=== PATIENT | female | born 1965 | race Caucasian/White ===

== ENCOUNTER 2019-09-12 14:36 | Outpatient (CLI) | payer BC, SELFPAY ==
--- NOTE | 2019-09-12 14:44 | MM_ITS ---
WS: [id number] SCREENING DIGITAL MAMMOGRAM WITH CAD HISTORY: SCREENING COMPARISON: None available. Bilateral CC and MLO views submitted. Computer aided detection analyzed. Breast composition: There are scattered areas of fibroglandular density. There is mild asymmetry of t he upper outer quadrant of the LEFT breast, best seen on the CC projection laterally. LEFT breast: Spot compression views (CC and MLO). True ML. Ultrasound to follow if abnormality anjana liu. MM/[id number] IMPRESSION: BI-RADS: 0-Incomplete: Need additional imaging evaluation FOLLOW UP: Need Additional Imaging
== END 2019-09-12 14:37 | disposition home or self-care (01) ==
LOC: RADSHAW 14:42
PROVIDERS: PCP Electrodiagnostic Medicine; Visit Provider Electrodiagnostic Medicine
DX: Z12.31 Encounter for screening mammogram for malignant neoplasm of breast (principal); N64.89 Other specified disorders of breast
CPT/HCPCS: 77067

== ENCOUNTER 2019-10-11 09:19 | Outpatient (CLI) | payer BC, SELFPAY ==
--- NOTE | 2019-10-11 09:24 | US_ITS ---
WS: [id number] ADDITIONAL VIEWS LEFT MAMMOGRAM LEFT BREAST ULTRASOUND HISTORY: LT BREAST ASYMMETRY COMPARISON: 09/12/2019 LEFT MAMMOGRAM: Spot compression views and true ML. Asymmetry nearly completely resolves in the upper outer quadrant. There is still an area of etl architect ural distortion which could be related to prior surgery. Minimal asymmetry persists. LEFT BREAST ULTRASOUND 2-D and color Doppler imaging submitted. Ultrasound is directed to the upper outer quadrant. There is a well-circumscribed hypoechoic mass franco suring 6 x 5 x 6 mm. No increased vascularity. 2 cm from the nipple. There is an additional hypoechoi c nodule with hyperechoic margins at 12:00, 2 cm from the nipple. This nodule measures 3 x 3 x 2 mm. No increased vascularity. Slightly taller than wide. Ultrasound-guided biopsy recommended of the hypoechoic nodule at 12:00, 2 cm from the nipple. This no dule is not definitely seen by mammogram and only seen by ultrasound. Additional hypoechoic nodule at 2:00 is very benign in appearance. Recommend ultrasound follow-up in 6 months. US/US breast LT limited* [id number] IMPRESSION: BI-RADS: 4-Suspicious Finding-Biopsy Should Be Considered FOLLOW UP: Biopsy Recommended
== END 2019-10-11 09:20 | disposition home or self-care (01) ==
LOC: RADSHAW 09:22
PROVIDERS: PCP Electrodiagnostic Medicine; Visit Provider Electrodiagnostic Medicine
DX: N64.89 Other specified disorders of breast (principal); N63.21 Unspecified lump in the left breast, upper outer quadrant
CPT/HCPCS: 76642; 77065

== ENCOUNTER 2019-10-17 12:07 | Outpatient (CLI) | payer BC, SELFPAY ==
--- NOTE | 2019-10-17 12:16 | US_ITS ---
WS: [id number] ULTRASOUND-GUIDED LEFT BREAST BIOPSY CLINICAL INFORMATION: L BREAST MASS COMPARISON: None. FINDINGS: The procedure including risks, benefits, and complications were discussed with the patient who agreed to proceed. Using sterile technique patient was prepped and draped in the usual sterile fashion. Aft er 1% lidocaine utilizing real-time ultrasound guidance 5 14-gauge cores were obtained of the left br east lesion at the 12 o'clock position. Subsequently a titanium clip was placed in the biopsy cavity. No immediate complications. Pathology demonstrates Breast, left, mass, ultrasound guided biopsy: -Benign fibroadipose tissue with benign glandular tissue and stromal sclerosis. -No malignancy identified. US/[id number] IMPRESSION: 1. Uncomplicated ultrasound-guided left breast biopsy. 2. The pathology demonstrates benign breast tissue. No evidence of malignancy. 3. Additional hypoechoic nodule at the 2:00 position previously described will be followed up in 6 months with left diagnostic mammography and ultrasound. BI-RADS: 2-Benign FOLLOW UP: 6 Month Follow-up
== END 2019-10-17 12:08 | disposition home or self-care (01) ==
LOC: RAD 12:14
PROVIDERS: PCP Electrodiagnostic Medicine; Visit Provider Electrodiagnostic Medicine
DX: N63.20 Unspecified lump in the left breast, unspecified quadrant (principal)
CPT/HCPCS: 19083; 88305

== ENCOUNTER 2020-11-09 10:40 | Outpatient (CLI) | payer BC, SELFPAY ==
--- NOTE | 2020-11-09 10:46 | MM_ITS ---
WS: [id number] BILATERAL DIGITAL DIAGNOSTIC MAMMOGRAM MAMMOGRAPHY WITH CAD CLINICAL INFORMATION: F/U FROM BIOPSY COMPARISON: September 11 and October 11, 2019 TECHNIQUE: Bilateral CC, MLO, and ML views. FINDINGS: Scattered fibroglandular densities bilaterally. Biopsy marker LEFT breast near the 12:00 position. As ymmetry in this area is stable in appearance compared to previous. Stable ovoid nodular densities franco suring 9 to 10 mm upper outer LEFT breast are unchanged. The smaller lesion most likely represents an intramammary lymph node. Ultrasound is pending. Stable punctate and clustered calcifications upper outer LEFT breast. Recommend 6 month follow-up. So me of these appear to represent incidental layering milk of calcium. RIGHT breast is unremarkable and unchanged. Incidental intramammary lymph node inner right breast me asuring 5 mm. Incidental punctate and lucent centered calcifications. ULTRASOUND BREAST LEFT TECHNIQUE: Ultrasound left breast focused area of concern. CLINICAL INFORMATION: F/U FROM BIOPSY FINDINGS: Ultrasound left breast at the 2 to 3:00 position and 12 to 2:00 position. Multiple incidental subcent imeter cysts and ductal ectasia. LESION 1: Previously biopsied lesion near the 12:00 position is stable in appearance measuring 10 x 1 1 x 6 mm with associated biopsy marker. (Note this is identified at the 2:00 position today) LESION 2: Solid appearing hypoechoic lesion at the 3:00 position 4 cm from the nipple measuring appro ximately 7.0 x 6.4 x 6.3 mm previously measured 6.5 x 5.2 x 6.1 mm. This is slightly more prominent t olvin and recommend further evaluation with ultrasound-guided biopsy. LESION 3: Additional hypoechoic lesion at the 3:00 position 2 cm from the nipple was not previously i dentified and measures 9.2 x 8.6 x 5.5 mm. This is nonspecific in appearance and may represent a sma ll intramammary lymph node, however recommend ultrasound guided biopsy of this lesion as well. MM/[place] [id number] IMPRESSION: BI-RADS: 4-Suspicious Finding-Biopsy Should Be Considered FOLLOW UP: US Guided Biopsy Recommended 1. Recommend ultrasound-guided biopsy of the solid hypoechoic lesion at the 3: 00 position 4 cm from the nipple. This is 1 to 2 mm larger compared to previous . 2. Additional new small lesion visualized today at the 3:00 position 2 cm from the nipple. This can also be biopsied at that time. 3. Stable punctate clustered calcifications upper outer left breast. Recommend 6 month follow-up with left diagnostic mammography and spot magnification view s. 4. Previously biopsied lesion at the 12:00 position with adjacent biopsy marke r is stable in appearance.
== END 2020-11-09 10:41 | disposition home or self-care (01) ==
LOC: RADSHAW 10:43
PROVIDERS: PCP Electrodiagnostic Medicine; Visit Provider Electrodiagnostic Medicine
DX: R92.8 Other abnormal and inconclusive findings on diagnostic imaging of breast (principal); N63.25 Unspecified lump in the left breast, overlapping quadrants; R92.1 Mammographic calcification found on diagnostic imaging of breast
CPT/HCPCS: 76642; 77066

== ENCOUNTER 2020-11-29 09:58 | Outpatient (CLI) | payer BC, SELFPAY ==
--- NOTE | 2020-11-29 10:38 | US_ITS ---
WS: [id number] ULTRASOUND-GUIDED LEFT BREAST BIOPSY CLINICAL INFORMATION: LEFT BREAST MASS COMPARISON: None. FINDINGS: The procedure including risks, benefits, and complications were discussed with the patient who agreed to proceed. Using sterile technique patient was prepped and draped in the usual sterile fashion. Aft er 1% lidocaine utilizing real-time ultrasound guidance 5 14-gauge cores were obtained of the left br east lesion at the 3 o'clock position 4 cm from the nipple. Subsequently a titanium clip was placed i n the biopsy cavity. No immediate complications. The previously described potential lesion at the 3:00 position 2 cm from the nipple is not well seen today and may correspond to a prominent duct seen on today's exam. This was not biopsied. This can be further compared when the postbiopsy ultrasound and left diagnostic mammography are performed in [facility] Pathology demonstrates Left breast mass, needle core biopsies: 1. Fibrocystic change with focal fat necrosis 2. No malignancy identified US/[id number] IMPRESSION: 1. Uncomplicated ultrasound-guided left breast biopsy 3:00 position 4 cm the n ipple. 2. The pathology demonstrates fibrocystic change and fat necrosis. No malignan cy identified. 3. Recommend 6 month left diagnostic mammography and ultrasound postbiopsy, an d also ultrasound for comparison of the prominent duct at the 3:00 position 2 c m from the nipple BI-RADS: 2-Benign FOLLOW UP: 6 Month Follow-up
== END 2020-11-29 09:59 | disposition home or self-care (01) ==
LOC: RAD 10:01
PROVIDERS: PCP Electrodiagnostic Medicine; Visit Provider Electrodiagnostic Medicine
DX: R92.8 Other abnormal and inconclusive findings on diagnostic imaging of breast (principal); N63.25 Unspecified lump in the left breast, overlapping quadrants; N64.1 Fat necrosis of breast
CPT/HCPCS: 19083; 88305

== ENCOUNTER → 2020-12-07 00:01 | Outpatient (BNVA) | payer BC, SELFPAY | PROVIDERS: PCP Electrodiagnostic Medicine; Visit Provider Obstetrics & Gynecology | DX: R10.2 Pelvic and perineal pain (principal); R32 Unspecified urinary incontinence | CPT/HCPCS: 87077; 87086; 87184 ==